=== PATIENT | male | born 1970 | race Hispanic/Latino ===

== ENCOUNTER 2017-09-25 01:11 | Emergency (ER) | payer SELFPAY ==
[2017-09-25 01:19] VITALS: TEMP 98.6; BMI 26.9
--- NOTE | 2017-09-25 01:28 | ED PDOC ---
Arrival/HPI - General Chief Complaint: Substance Abuse Time Seen by Provider: 09/25/17 01:21 Historian: Patient - History of Present Illness Narrative History of Present Illness (Text): 09/25/17 01:28 Diony Spivey is a 46 year old male, whose past medical history includes substance abuse, who presents to the Emergency department brought in by EMS status post overdose prior to arrival. Patient states he snorted heroin tonight prior to arrival and only recalls waking up after EMS arrived at his home. states she found patient unconscious on the floor and notified EMS. Patient was given Narcan en route to the hospital with improvement and is currently only complaining nausea and headache. Patient denies any fever, chills, chest pain, shortness of breath, back pain, neck pain, dizziness, or any other complaints. Time/Duration: Prior to Arrival Symptom Onset: Sudden Symptom Course: Improving Context: Home Past Medical History - Provider Review Nursing Documentation Reviewed: Yes - Infectious Disease Hx of Infectious Diseases: None Family/Social History - Physician Review Nursing Documentation Reviewed: Yes Family/Social History: Unknown Family HX Allergies/Home Meds Allergies/Adverse Reactions: Allergies No Known Allergies Allergy (Verified 09/25/17 01:19) Home Medications: Home Meds Medication Instructions Recorded Confirmed No Known Home Med 09/25/17 09/25/17 Review of Systems - Physician Review All systems were reviewed & negative as marked: Yes - Review of Systems Constitutional: Normal. absent: Fevers Eyes: Normal ENT: Normal Respiratory: Normal. absent: SOB, Cough Cardiovascular: Normal. absent: Chest Pain Gastrointestinal: Nausea Genitourinary Male: Normal. absent: Dysuria, Frequency, Hematuria, Urinary Output Changes Musculoskeletal: Normal. absent: Back Pain, Neck Pain Skin: Normal. absent: Rash Neurological: Headache. absent: Dizziness Endocrine: Normal Hemo/Lymphatic: Normal Psychiatric: Normal Physical Exam Vital Signs Reviewed: Yes Vital Signs Temp Pulse Resp BP Pulse Ox 09/25/17 05:20 75 16 101/70 94 L 09/25/17 04:07 74 14 100/59 L 95 09/25/17 01:43 79 14 111/73 94 L 09/25/17 01:14 98.6 F 81 20 114/72 99 Temperature: Afebrile Blood Pressure: Normal Pulse: Regular Respiratory Rate: Normal Appearance: Positive for: Well-Appearing, Non-Toxic, Comfortable Pain Distress: None Mental Status: Positive for: Alert and Oriented X 3 - Systems Exam Head: Present: Atraumatic, Normocephalic Pupils: Present: PERRL Extroacular Muscles: Present: EOMI Conjunctiva: Present: Normal Mouth: Present: Moist Mucous Membranes Neck: Present: Normal Range of Motion Respiratory/Chest: Present: Clear to Auscultation, Good Air Exchange. No: Respiratory Distress, Accessory Muscle Use Cardiovascular: Present: Regular Rate and Rhythm, Normal S1, S2. No: Murmurs Abdomen: No: Tenderness, Distention, Peritoneal Signs Back: Present: Normal Inspection Upper Extremity: Present: Normal Inspection. No: Cyanosis, Edema Lower Extremity: Present: Normal Inspection. No: Edema Neurological: Present: GCS=15, CN II-XII Intact, Speech Normal Skin: Present: Warm, Dry, Normal Color. 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 Plan: -- CT Head w/o contrast -- EKG -- Labs, alcohol level -- IV fluids -- Zofran -- Reassess and disposition Progress Notes: Reviewed EKG, NSR at [address] bpm[address] Non-specific ST/T wave changes. 09/25/17 05:24 CT Head shows: Brain: Unremarkable. No hemorrhage. No significant white matter disease. No edema. Ventricles: Unremarkable. No ventriculomegaly. Bones/joints: Unremarkable. No acute fracture. Soft tissues: Unremarkable. Sinuses: Unremarkable as visualized. No acute sinusitis. Mastoid air cells: Unremarkable as visualized. No mastoid effusion. IMPRESSION: Normal head/brain CT. 09/25/17 05:38 On re-evaluation, pt is awake, alert, and sober. Risks of recreational drug and alcohol abuse discussed with pt, pt verbalized understanding, pt d/c with his with outpt referral. - Lab Interpretations Lab Results: 09/25/17 01:35 09/25/17 01:35 Lab Results 09/25/17 03:30: Urine Opiates Screen Negative, Urine Methadone Screen Negative, Ur Barbiturates Screen Positive H, Ur Phencyclidine Scrn Negative, Ur Amphetamines Screen Negative, U Benzodiazepines Scrn Negative, U Oth Cocaine Metabols Positive H, U Cannabinoids Screen Negative 09/25/17 01:35: Alcohol, Quantitative 156 H 09/25/17 01:35: WBC 10.6, RBC 4.35, Hgb 13.9 L, Hct 41.5 L, MCV 95.4, MCH 32.0, MCHC 33.5, RDW 13.1, Plt Count 218, MPV 9.6 09/25/17 01:35: Sodium 142, Potassium 3.4 L, Chloride 106, Carbon Dioxide 17 L, Anion Gap 22 H, BUN 13, Creatinine 1.0, Est GFR ( Amer) > 60, Est GFR ( Non-Af Amer) > 60, Random Glucose 140 H, Calcium 8.0 L, Total Bilirubin 0.3, AST 39, ALT 27, Alkaline Phosphatase 78, Total Protein 7.6, Albumin 4.4, Globulin 3.1, Albumin/Globulin Ratio 1.4 - RAD Interpretation Radiology Orders: 09/25/17 01:31 HEAD W/O CONTRAST [CT] Stat [employer] Teacher: Radiologist - EKG Interpretation Interpreted by ED Physician: Yes Type: 12 lead EKG - Medication Orders Current Medication Orders: Discontinued Medications Sodium Chloride (Sodium Chloride 0.9%) 1,000 mls @ 999 mls/hr IV .Q1H1M STA Stop: 09/25/17 02:32 Last Admin: 09/25/17 01:35 Dose: 999 mls/hr eMAR Start Stop Document 09/25/17 01:35 LISSY (Rec: 09/25/17 01:49 [id number] Intravenous Solution Start Date 09/25/17 Start Time 01:35 Ondansetron HCl (Zofran Inj) 4 mg IVP ONCE ONE Stop: 09/25/17 01:33 Last Admin: 09/25/17 01:39 Dose: 4 mg IVP Administration Document 09/25/17 01:39 LISSY (Rec: 09/25/17 01:49 [id number]) Charges for Administration # of IVP Administrations 1 - Scribe Statement The provider has reviewed the documentation as recorded by the Jose Ernst Provider Scribe Attestation: All medical record entries made by the Scribe were at my direction and personally dictated by me. I have reviewed the chart and agree that the record accurately reflects my personal performance of the history, physical exam, medical decision making, and the department course for this patient. I have also personally directed, reviewed, and agree with the discharge instructions and disposition. Disposition/Present on Arrival - Present on Arrival Any Indicators Present on Arrival: No History of DVT/PE: No History of Uncontrolled Diabetes: No Urinary Catheter: No History of Decub. Ulcer: No History Surgical Site Infection Following: None - Disposition Have Diagnosis and Disposition been Completed?: Yes Diagnosis: Alcohol intoxication, Drug abuse Disposition: HOME/ ROUTINE Disposition Time: 05:37 Patient Plan: Discharge Patient Problems: Current Active Problems Problem Status Onset Alcohol intoxication Acute Drug abuse Acute Condition: STABLE Discharge Instructions (ExitCare): Drug Abuse and Drug Addiction (DC), Alcohol Abuse and Alcoholism (DC) Referrals: Community Mental Health [Outside] - Follow up with primary Alcoholics Anonymous [Outside] - Follow up with primary Forms: [employer] (Kiswahili)
[2017-09-25] MEDS ORDERED: Sodium Chloride 0.9% 1,000 ML IV STA (01:32)
[2017-09-25 02:23] LABS: HEMOGLOBIN 13.9 g/dL (14.0-18.0); MEAN CELL VOLUME 95.4 fl (80.0-105.0); MEAN CORPUSCULAR HGB CONC 33.5 g/dl (31.0-37.0); MEAN PLATELET VOLUME 9.6 fl (7.0-11.0); RBC 4.35 10^6/uL (3.5-6.1); RED CELL DISTRIBUTION WIDTH 13.1 % (11.5-14.5); WHITE BLOOD COUNT 10.6 10^3/ul (4.5-11.0)
[2017-09-25 02:46] LABS: ALB/GLOB RATIO 1.4 (1.1-1.8); ALBUMIN 4.4 g/dL (3.0-4.8); ALT/SGPT 27 U/L (7-56); AST/SGOT 39 U/L (17-59); BLOOD UREA NITROGEN 13 mg/dL (7-21); GFR AFRICAN-AMERICAN > 60; GFR NON-AFRICAN AMERICAN > 60
[2017-09-25 04:50] LABS: BARBITURATES, UR POSITIVE (NEGATIVE); BENZODIAZEPINES, UR NEGATIVE (NEGATIVE); OPIATES, UR NEGATIVE (NEGATIVE); PHENCYCLIDINE, UR NEGATIVE (NEGATIVE)
[2017-09-25 05:21] VITALS: O2SAT 94
[2017-09-25 06:12] VITALS: BP 105/57; PULSE 74; RESP 20
--- NOTE | 2017-09-25 07:52 | CT ---
PROCEDURE: CT HEAD WITHOUT CONTRAST. HISTORY: headache/syncope COMPARISON: None available. TECHNIQUE: Axial computed tomography images were obtained through the head/brain without intravenous contrast. Coronal and sagittal reconstructed images. Radiation dose: Total exam DLP = 839.69 mGy-cm. This CT exam was performed using one or more of the following dose reduction techniques: Automated exposure control, adjustment of the mA and/or kV according to patient size, and/or use of iterative reconstruction technique. FINDINGS: HEMORRHAGE: No intracranial hemorrhage. BRAIN: No mass effect or edema. No atrophy or chronic microvascular ischemic changes. VENTRICLES: Unremarkable. No hydrocephalus. CALVARIUM: Unremarkable. PARANASAL SINUSES: Unremarkable as visualized. No significant inflammatory changes. MASTOID AIR CELLS: Unremarkable as visualized. No inflammatory changes. OTHER FINDINGS: None. IMPRESSION: No acute intracranial abnormalities. No significant findings to account for the clinical presentation. Concordant results (preliminary interpretation) provided by [employer]. Procedure Completed: 03:40 Preliminary ([facility]) Report: Dictated and Authenticated: 05:18 Final Interpretation: 07:50
--- NOTE | 2017-09-25 09:47 | CARD ---
APPROVED REPORT EKG Measurement Heart [id number] <Conclusion> Normal sinus rhythm Incomplete right bundle branch block Prolonged QTc
== END 2017-09-25 05:45 | disposition home or self-care (01) ==
LOC: ED 01:11
DX: F10.129 Alcohol abuse with intoxication, unspecified (principal); Y90.6 Blood alcohol level of 120-199 mg/100 ml; F19.10 Other psychoactive substance abuse, uncomplicated
CPT/HCPCS: 70450; 80053; 85027; 93005; 96374; 99285; G0480; J2405; J7030